=== PATIENT | female | born 1995 | race Caucasian/White ===

== ENCOUNTER 2017-03-26 01:47 | Emergency (ER) | payer SELFPAY ==
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
[2017-03-26 01:51] VITALS: TEMP 97.5; O2SAT 99
[2017-03-26 02:15] VITALS: BP 119/81; PULSE 81; RESP 14
== END 2017-03-26 02:14 | disposition home or self-care (01) ==
DX: F10.921 Alcohol use, unspecified with intoxication delirium (principal); R11.2 Nausea with vomiting, unspecified